=== PATIENT | female | born 1965 | race Caucasian/White ===

== ENCOUNTER 2017-03-02 14:15 | Emergency (ER) | payer MEDICAID ==
[2017-03-02] MEDS ORDERED: Lactated Ringers 1,000 ML IV ONE (15:36)
[2017-03-02] MEDS ORDERED: Sodium Chloride 0.9% 10 ML Syringe FLUSH PRN (15:36)
[2017-03-02] MEDS ORDERED: Albuterol/Ipratropium 3.0-0.5 MG/3 ML Neb Soln NEB ONE (15:38)
[2017-03-02] MEDS ORDERED: LORazepam 2 MG/ML MDV IVPUSH ONE (15:39)
--- NOTE | 2017-03-02 15:51 | EDM.PDOC ---
ED HPI GENERAL MEDICAL PROBLEM - General Chief Complaint: Respiratory Problem Stated Complaint: SOB/PASSED OUT Time Seen by Provider: 03/02/17 15:33 Source of Information: Reports: Patient, Family, RN Notes Reviewed History Limitations: Reports: No Limitations - History of Present Illness INITIAL COMMENTS - FREE TEXT/NARRATIVE: 51-year-old female presents to the emergency department today with increasing shortness of breath, she states over the last week or so she felt she had kind of a viral infection and was actually getting better and in his morning woke up with a rattling chest sputum production has had low-grade fevers highest 99, her shortness of breath progressively got worse throughout the day no nausea vomiting no chest pain no other GI symptomatology Anterior Chest Pain Score (Numeric/FACES): 7 - Related Data Allergies Allergy/AdvReac Type Severity Reaction Status Date / Time rizatriptan Allergy Bradycardia Verified 03/02/17 14:40 Sulfa (Sulfonamide Allergy Swollen Verified 03/02/17 14:36 Antibiotics) Tongue Home Meds: Home Meds Naproxen Sodium 550 mg PO DAILY PRN 05/18/16 [History] Past Medical History HEENT History: Reports: Impaired Vision EVP GENERAL COUNSEL History: Reports: Musculoskeletal History: Reports: Neck Pain, Chronic Neurological History: Reports: Cerebral Aneurysms, Migraines Psychiatric History: Reports: Anxiety, Depression, Panic Attack, PTSD Oncologic (Cancer) History: Reports: Cervix - Infectious Disease History Infectious Disease History: Reports: Chicken Pox - Past Surgical History Female Surgical History: Reports: Ureteral Stent, Other (See Below) Other Female Surgeries/Procedures: endometriosis cervix CA Lazer surgery Neurological Surgical History: Reports: C-Spine Musculoskeletal Surgical History: Reports: Other (See Below) Other Musculoskeletal Surgeries/Procedures:: neck surgery 3 plates and screws Social & Family History - Tobacco Use Smoking Status *Q: Current Every Day Smoker Years of Tobacco use: 15 Packs/Tins Daily: 0.2 Used Tobacco, but Quit: No Second Hand Smoke Exposure: Yes - Caffeine Use Caffeine Use: Reports: Coffee, Soda, Tea - Recreational Drug Use Recreational Drug Use: No ED ROS GENERAL - Review of Systems Review Of Systems: See Below Constitutional: Reports: Fever, Malaise HEENT: Reports: No Symptoms Respiratory: Reports: Shortness of Breath, Wheezing, Cough, Sputum Cardiovascular: Reports: No Symptoms GI/Abdominal: Reports: No Symptoms : Reports: No Symptoms Musculoskeletal: Reports: No Symptoms Skin: Reports: No Symptoms Neurological: Reports: No Symptoms ED EXAM, GENERAL - Physical Exam Exam: See Below Free Text/Narrative:: General: Female, in moderate respiratory distress, tripoding, alert and oriented x3 HEENT: head is atraumatic normocephalic, eyes pupils equal round reactive to light, sclera clear no conjunctivitis appreciated. Ears tympanic membranes clear and mukherjee landmarks and light reflex are present bilaterally canals are clear. Nose no septal deviation, nares are clear, no blood present. Mouth mucosa is moist and pink no erythema or exudate noted in soft palate, tongue is midline uvula is midline, dentition is intact. Neck: Supple no thyromegaly no tracheal deviation. Nodes: Cervical nodes subclavicular nodes nontender no palpable lymphadenopathy noted. Lungs: Coarse breath sounds rhonchi and wheezing throughout all lung river bilaterally upper airway noise as well CV: Regular rate and rhythm S1 and S2 appreciated no murmurs rubs or gallops noted. Abdomen: Soft, nontender, no palpable masses or organomegaly appreciated, no distention no guarding bowel sounds are present, . Neuro: Cranial nerves II through XII grossly intact Skin: Warm and dry, intact Extremities: No lower extremity edema appreciated, Course - Vital Signs Last Recorded V/S: Last Vital Signs Temp 97.7 F 03/02/17 17:18 Pulse 64 03/02/17 17:18 Resp 16 03/02/17 17:18 BP 148/86 H 03/02/17 17:18 Pulse Ox 98 03/02/17 17:18 - Orders/Labs/Meds Orders: Active Orders 24 hr Category Date Time Status Peripheral IV Care [RC] . DIRECTED Care 03/02/17 15:36 Active RT Aerosol Therapy [RC] ASDIRECTED Care 03/02/17 15:38 Active Chest 2V [CR] Urgent Exams 03/02/17 15:36 Taken CULTURE RESPIRATORY + SMEAR [RM] Urgent Lab 03/02/17 16:41 Results Sodium Chloride 0.9% [Saline Flush] Med 03/02/17 15:36 Active 10 ml FLUSH ASDIRECTED PRN Peripheral IV Insertion Adult [OM.PC] Urgent Oth 03/02/17 15:36 Ordered Medication Orders Sodium Chloride (Saline Flush) 10 ml FLUSH ASDIRECTED PRN PRN Reason: Keep Vein Open Labs: Laboratory Tests 03/02/17 03/02/17 03/02/17 Range/Units 15:53 15:53 15:53 WBC 7.2 (4.5-11.0) K/uL RBC 4.70 (3.30-5.50) M/uL Hgb 14.4 (12.0-15.0) g/dL Hct 40.9 (36.0-48.0) % MCV 87 (80-98) fL MCH 31 (27-31) pg MCHC 35 (32-36) % Plt Count 274 (150-400) K/uL Neut % (Auto) 53 (36-66) % Lymph % (Auto) 35 (24-44) % Garfield % (Auto) 10 H (2-6) % Eos % (Auto) 1 L (2-4) % Baso % (Auto) 1 (0-1) % Sodium 141 (140-148) mmol/L Potassium 4.0 (3.6-5.2) mmol/L Chloride 106 (100-108) mmol/L Carbon Dioxide 23 (21-32) mmol/L Anion Gap 11.6 (5.0-14.0) mmol/L BUN 14 (7-18) mg/dL Creatinine 0.9 (0.6-1.0) mg/dL Est Cr Clr Drug Dosing 76.28 mL/min Estimated GFR (MDRD) > 60 (>60) Glucose 93 (74-106) mg/dL Lactic Acid 2.1 H (0.4-2.0) mmol/L Calcium 9.3 (8.5-10.1) mg/dL Total Bilirubin 0.4 (0.2-1.0) mg/dL AST 16 (15-37) U/L ALT 20 (12-78) U/L Alkaline Phosphatase 81 (46-116) U/L Total Protein 8.3 H (6.4-8.2) g/dL Albumin 4.1 (3.4-5.0) g/dL Globulin 4.2 H (2.3-3.5) g/dL Albumin/Globulin Ratio 1.0 L (1.2-2.2) Meds: Medications Generic Name Dose Route Start Last Admin Trade Name Freq PRN Reason Stop Dose Admin Sodium Chloride 10 ml 03/02/17 15:36 Saline Flush FLUSH ASDIRECTED PRN Keep Vein Open Discontinued Medications Generic Name Dose Route Start Last Admin Trade Name Tori PRN Reason Stop Dose Admin Albuterol/Ipratropium 3 ml 03/02/17 15:38 03/02/17 16:09 Duoneb 3.0-0.5 Mg/3 Ml NEB 03/02/17 15:39 3 ml ONETIME ONE Administration Guaifenesin 600 mg 03/02/17 16:39 03/02/17 17:14 Mucinex PO 03/02/17 16:40 600 mg ONETIME ONE Administration Lactated Ringer's 1,000 mls @ 999 mls/hr 03/02/17 15:36 03/02/17 16:14 Ringers, Lactated IV 03/02/17 16:36 999 mls/hr ASDIRECTED ONE Administration Ceftriaxone Sodium 1 gm/ 50 mls @ 100 mls/hr 03/02/17 16:39 03/02/17 17:09 Sodium Chloride IV 03/02/17 17:08 100 mls/hr ONETIME ONE Administration Lorazepam 1 mg 03/02/17 15:39 03/02/17 16:07 Ativan IVPUSH 03/02/17 15:40 1 mg ONETIME ONE Administration Departure - Departure Time of Disposition: 18:12 Disposition: Home, Self-Care 01 Condition: Good Clinical Impression: CAP (community acquired pneumonia) Qualifiers: Laterality: unspecified laterality Qualified Code(s): J18.9 - Pneumonia, unspecified organism - Discharge Information Referrals: Juan Gonzalez PA-C [Primary Care Provider] - Forms: ED Department Discharge Additional Instructions: Take full course of antibiotics, use Mucinex as needed for sputum production, Please followup with your primary care provider in 3-5 days if not better, please call return to the emergency department with worsening of symptoms. - My Orders Last 24 Hours: My Active Orders 03/02/17 15:36 Peripheral IV Care [RC] . DIRECTED Chest 2V [CR] Urgent Sodium Chloride 0.9% [Saline Flush] 10 ml FLUSH ASDIRECTED PRN Peripheral IV Insertion Adult [OM.PC] Urgent 03/02/17 15:38 RT Aerosol Therapy [RC] ASDIRECTED 03/02/17 16:41 CULTURE RESPIRATORY + SMEAR [RM] Urgent - Assessment/Plan Last 24 Hours: My Active Orders 03/02/17 15:36 Peripheral IV Care [RC] . DIRECTED Chest 2V [CR] Urgent Sodium Chloride 0.9% [Saline Flush] 10 ml FLUSH ASDIRECTED PRN Peripheral IV Insertion Adult [OM.PC] Urgent 03/02/17 15:38 RT Aerosol Therapy [RC] ASDIRECTED 03/02/17 16:41 CULTURE RESPIRATORY + SMEAR [RM] Urgent Plan: Assessment Acuity = acute Site and laterality = community-acquired pneumonia Etiology = probable gram-positive cocci Manifestations = dyspnea, cough Location of injury = Home Lab values = CBC, CMP unremarkable lactic acid within normal limits at 2.1 chest x-ray I did review films myself I cannot appreciate any acute process, the official read from radiology is pending, sputum does show multiple gram- positive cocci with greater than 25 WBCs cultures pending Plan She did receive 1 g of Rocephin in the emergency department, prescription written for Ceftin 500 mg by mouth twice a day 7 days have her follow-up with her primary care in the next 5-7 days for reevaluation if not better Patient was in agreement with the plan all questions were answered, they were instructed to return to the emergency department or call for worsening symptoms. This note was dictated using Blogv[employer] voice recognition software please call with any questions.
[2017-03-02] MEDS ORDERED: cefTRIAXone 1 GM in Sodium Chloride 0.9% 50 ML IV ONE (16:39)
[2017-03-02] MEDS ORDERED: guaiFENesin 600 MG Tab.ER PO ONE (16:39)
[2017-03-02 17:19] VITALS: BP 148/86
--- NOTE | 2017-03-03 08:57 | CR ---
Chest 2V HISTORY: sob COMPARISON: None FINDINGS: Lungs appear clear and normally aerated. Cardiomediastinal silhouette is within normal limits. No vas cular redistribution or pleural fluid can be seen. There is anterior plate and screw fusion lower cer vical spine. Bony structures and soft tissues are otherwise unremarkable. IMPRESSION: No acute chest abnormality identified.
== END 2017-03-02 18:27 | disposition home or self-care (01) ==
LOC: JP.ED 14:15
DX: J18.9 Pneumonia, unspecified organism (principal); F17.210 Nicotine dependence, cigarettes, uncomplicated; Z88.2 Allergy status to sulfonamides; Z88.8 Allergy status to other drugs, medicaments and biological substances; Z96.0 Presence of urogenital implants; Z98.890 Other specified postprocedural states
CPT/HCPCS: 36415; 71020; 80053; 83605; 85025; 87070; 87205; 94640; 96361; 96365; 96375; 99285; A9270; J0696; J2060; J7050; J7120; J7620

== ENCOUNTER 2017-05-16 06:57 | Day surgery (SDC) | payer MEDICAID ==
[2017-05-16] MEDS ORDERED: Propofol 200 MG/20 ML SDV ONE (07:04)
[2017-05-16] MEDS ORDERED: Midazolam 1 MG/ML 2 ML SDV ONE (07:05)
[2017-05-16] MEDS ORDERED: fentaNYL 100 MCG/2 ML SDV ONE (07:05)
[2017-05-16] MEDS ORDERED: Dextrose 5%-Lactated Ringers 1,000 ML IV SCH (07:30)
[2017-05-16] MEDS ORDERED: Glycopyrrolate 0.2 MG/ML 2 ML SDV IVPUSH ONE (07:30)
[2017-05-16 10:18] VITALS: BP 141/71
--- NOTE | 2017-05-23 16:47 | OR ---
DATE OF PROCEDURE: 05/16/2017 PREOPERATIVE DIAGNOSIS: Upper abdominal pain. POSTOPERATIVE DIAGNOSES: Upper abdominal pain associated with: 1. Small hiatal hernia with wide-open gastroesophageal junction and also grossly gastroesophageal reflux disease. 2. Mild antral gastritis. OPERATIVE PROCEDURES: Esophagogastroduodenoscopy with; 1. Biopsies of esophagogastric junction for histologic evaluation. 2. Biopsies of antrum for CLOtest. ANESTHESIA: IV sedation. INDICATION FOR PROCEDURE: This is a 51-year-old female presenting with episodes of epigastric pain going into the lower chest and also radiating to the back. She had been on omeprazole 20 mg a day and 5 days ago went up to 40 mg a day, but has not noticed much in the change of her symptoms. The plan is proceed with upper GI endoscopy with biopsies and dilation as indicated. Potential risks including bleeding and perforation were discussed and the patient wishes to proceed. DETAILS OF PROCEDURE: The patient was taken to the operating room and placed in a left lateral decubitus position. IV sedation was administered, after which the upper GI endoscope was passed orally through the length of the esophagus and into the stomach with retroflexion view of the fundus, thereafter through the pyloric channel and into the proximal duodenum. Findings included normal hypopharynx, larynx, upper esophageal sphincter, and esophageal body. At the EG junction, there was a small hiatal hernia, there was quite wide open gastroesophageal junction as visualized from the distal esophagus with some mild edema of the EG junction without erosions or ulceration and no stricturing or other signs of neoplasia were seen. There was no obvious extension of the columnar-appearing mucosa above the level of the gastric folds. Within the stomach, apart from a small hiatal hernia, wide open esophagogastric junction, the proximal stomach was unremarkable. There was a fairly mild antral gastritis present without erosions or ulcers. Pyloric channel and duodenum to the junction of the 3rd and 4th portions was unremarkable. At this point, biopsies obtained from the antrum and sent for CLOtest for H. pylori. Multiple biopsies were obtained from esophagogastric junction, sent for histologic evaluation. No bleeding from the biopsy sites were seen and the procedure was then concluded. The patient was taken to the recovery room in satisfactory condition. At this point, we will have the patient to continue the omeprazole 40 mg a day. The findings are not entirely convincing as far as causing the patient's present symptoms as such. Given this, we will obtain a CCK-stimulated HIDA scan to rule out biliary dyskinesia, and we will see the patient back next week to try to put things together in terms of diagnosis and plan. One additional finding was that of deeply pigmented and irregular mole from her left arm. This will be excised at the time of the followup appointment next week as well to either rule out or eliminate melanoma. Gianni Reich MD /[id number]
--- NOTE | 2017-05-28 12:07 | OR ---
DATE OF PROCEDURE: 05/16/2017 PREOPERATIVE DIAGNOSIS: Upper abdominal pain. POSTOPERATIVE DIAGNOSES: Upper abdominal pain associated with: 1. Small hiatal hernia with wide-open esophagogastric junction and mild gross gastroesophageal reflux disease. 2. Mild antral gastritis. OPERATIVE PROCEDURE: Esophagogastroduodenoscopy with: 1. Biopsies of esophagogastric junction for histologic evaluation. 2. Biopsies of antrum for CLOtest. ANESTHESIA: IV sedation. INDICATIONS FOR PROCEDURE: This is a 51-year-old presenting with ongoing upper abdominal pain. Plan is to proceed with upper GI endoscopy with biopsies as indicated. Potential risks including bleeding and perforation were discussed, and the patient wishes to proceed. DETAILS OF PROCEDURE: The patient was taken to the operating room and placed in a left lateral decubitus position. IV sedation was administered, after which the upper GI endoscope was passed orally through the length of the esophagus and into the stomach with retroflexion view of the fundus, and thereafter through the pyloric channel and into the proximal duodenum. Findings included normal hypopharynx, larynx, upper esophageal sphincter, and esophageal body. At the EG junction, a small hiatal hernia was noted. The patient did have a quite wide-open esophagogastric junction as viewed from the distal esophagus along with some mild edema and slight friability of the distal esophageal mucosa consistent with reflux disease. There was no upward extension of the gastroesophageal junction mucosal line. Within the stomach apart from the hiatal hernia, there were no abnormalities in the proximal stomach. As one passed into the distal stomach, there was some mild redness of the antrum without erosions or ulcers. Pyloric channel and duodenum to the junction of the 3rd and 4th portions were unremarkable. At this point, biopsies were obtained from the antrum and sent for CLOtest for H. pylori. Multiple biopsies were obtained from esophagogastric junction, sent for histologic evaluation. Minimal bleeding from the biopsy sites were seen and the procedure was then concluded. The patient was taken to the recovery room in satisfactory condition. Overall, the patient's findings on the upper endoscopy do not adequately explain her degree of symptoms, I suspect we might be dealing with some biliary colic, and we will obtain a CCK- stimulated HIDA scan and see her back next week if that test has been completed. Gianni Reich MD /[id number]
== END 2017-05-16 10:30 | disposition home or self-care (01) ==
LOC: JP.SDS 06:57
PROVIDERS: ATTEND Surgery
DX: K29.50 Unspecified chronic gastritis without bleeding (principal); K20.9 Esophagitis, unspecified; K44.9 Diaphragmatic hernia without obstruction or gangrene; K21.9 Gastro-esophageal reflux disease without esophagitis; F41.9 Anxiety disorder, unspecified; F32.9 Major depressive disorder, single episode, unspecified; Z88.2 Allergy status to sulfonamides; Z88.8 Allergy status to other drugs, medicaments and biological substances
CPT/HCPCS: 43239; 87081; 88305; J2250; J2704; J3010; J7042; J3490

== ENCOUNTER 2017-05-26 05:37 | Day surgery (SDC) | payer MEDICAID ==
[2017-05-26] MEDS ORDERED: Acetaminophen 500 MG Tab PO ONE (05:45)
[2017-05-26] MEDS: Dextrose 5%-Lactated Ringers 1,000 ML IV SCH ×2 (06:44→11:23)
[2017-05-26] MEDS ORDERED: Bupivacaine 0.5%/EPINEPHrine 1:200,000 50 ML MDV ONE (06:51)
[2017-05-26] MEDS ORDERED: cefOXitin 2 GM in Sodium Chloride 0.9% 50 ML IV ONE (07:00)
[2017-05-26] MEDS ORDERED: Albuterol/Ipratropium 3.0-0.5 MG/3 ML Neb Soln NEB ONE (07:00)
[2017-05-26] MEDS ORDERED: cefOXitin 2 GM in Premix Bag 1 BAG IV ONE (07:00)
[2017-05-26] MEDS ORDERED: fentaNYL 250 MCG/5 ML SDV ONE (07:02)
[2017-05-26] MEDS ORDERED: Neostigmine Methylsulfate 1 MG/ML 5 ML Syringe ONE (07:03)
[2017-05-26] MEDS ORDERED: Rocuronium 50 MG/5 ML Vial ONE (07:03)
[2017-05-26] MEDS ORDERED: Glycopyrrolate 0.2 MG/ML 5 ML MDV ONE (07:03)
[2017-05-26] MEDS ORDERED: Midazolam 1 MG/ML 2 ML SDV ONE (07:03)
[2017-05-26] MEDS ORDERED: Dexamethasone 4 MG/ML SDV ONE (07:03)
[2017-05-26] MEDS ORDERED: Propofol 200 MG/20 ML SDV ONE (07:03)
[2017-05-26] MEDS ORDERED: Ondansetron 4 MG/2 ML SDV ONE (07:03)
[2017-05-26] MEDS ORDERED: HYDROmorphone/Normal Saline 15 MG/30 ML PCA IV PRN (07:35)
[2017-05-26] MEDS ORDERED: Naloxone 0.4 MG/ML SDV IVPUSH PRN (07:35)
[2017-05-26] MEDS ORDERED: Bacitracin Oint 1 GM U/D Packet ONE (07:39)
[2017-05-26] MEDS ORDERED: hydrOXYzine HCl 100 MG/2 ML SDV IM ONE (08:42)
[2017-05-26] MEDS ORDERED: Naloxone 0.4 MG/ML SDV IV PRN (09:55)
[2017-05-26] MEDS ORDERED: Ondansetron 4 MG/2 ML SDV IVPUSH PRN (10:00)
[2017-05-26] MEDS ORDERED: Albuterol/Ipratropium 3.0-0.5 MG/3 ML Neb Soln INH PRN (10:00)
[2017-05-26] MEDS ORDERED: Pantoprazole 40 MG Vial IVPUSH SCH (11:00)
[2017-05-26] MEDS: Albuterol/Ipratropium 3.0-0.5 MG/3 ML Neb Soln INH SCH ×3 (12:58→21:09)
[2017-05-26] MEDS ORDERED: cefOXitin 2 GM in Sodium Chloride 0.9% 50 ML IV SCH (14:00)
[2017-05-26] MEDS: Acetaminophen/HYDROcodone 325-5 MG Tab PO PRN ×2 (19:20→23:12)
[2017-05-27] MEDS: Acetaminophen/HYDROcodone 325-5 MG Tab PO PRN ×3 (03:22→11:16)
[2017-05-27 07:16] VITALS: BP 126/64
[2017-05-27] MEDS: Albuterol/Ipratropium 3.0-0.5 MG/3 ML Neb Soln INH SCH ×2 (07:49→10:49)
--- NOTE | 2017-05-28 13:37 | DISCH ---
FINAL DIAGNOSES: 1. Subacute cholecystitis and cholelithiasis. 2. Incisional hernia. 3. Atypical skin lesion, left upper arm. SECONDARY DIAGNOSES: 1. History of migraine. 2. Depressive disorder and posttraumatic stress disorder. 3. History of asthma. 4. History of nicotine addiction. OPERATIVE PROCEDURES: Done on 05/26/2017: 1. Laparoscopic cholecystectomy along with incisional hernia repair. 2. Excision of atypical nevus, left upper arm. SUMMARY: This is a 51-year-old presenting with some ongoing abdominal pain. She recently had an upper endoscopy which showed some minor gastritis and gastroesophageal reflux disease, but it was felt to be inadequate to explain her degree of symptoms. A CCK- stimulated HIDA scan was obtained which showed a very low ejection fraction with CCK injection causing reproduction of the patient's pain as well, and the patient therefore underwent a laparoscopic cholecystectomy. She was noted to have an incisional hernia at the umbilical trocar site previously used and that was concurrently repaired. She was also noted to have an atypical darkly pigmented lesion with irregular borders in the left upper arm which was excised to determine whether or not there was a melanoma to prevent it from becoming one. Postoperatively, she had no significant problems. She will be discharged home on usual medications plus Redford 5/325, 1 to 2 tablets q.4 hours p.r.n. pain. She does take midodrine intermittently for migraines and she is instructed not to take both the midodrine and Redford at the same time to avoid overdosing on atenolol. Follow up with Dr. Reich at [facility] on 06/02/2017.
--- NOTE | 2017-05-29 08:43 | US ---
VL Duplex Lwr Ext Veins Ltd Rt HISTORY: right calf and foot pain FINDINGS: Deep venous system of the right lower extremity demonstrates normal blood flow and compressibility th roughout. Normal Doppler waveform variation is seen with respiration and calf compression. No color f low abnormality can be seen. IMPRESSION: No sonographic evidence for DVT right lower extremity.
--- NOTE | 2017-05-29 13:24 | OR ---
DATE OF PROCEDURE: 05/26/2017 PREOPERATIVE DIAGNOSES: 1. Subacute cholecystitis. 2. Atypical nevus, left upper arm. POSTOPERATIVE DIAGNOSES: 1. Subacute cholecystitis and cholelithiasis. 2. Incisional hernia. 3. Atypical nevus, left upper arm. OPERATIVE PROCEDURE: Diagnostic laparoscopy with: 1. Cholecystectomy (74533). 2. Incisional hernia repair (48092). 3. Excision of atypical nevus, left upper arm with layered closure ([id number], [id number]). ANESTHESIA: General. TORCH SOLDERER: Christianne Verma PA-C. INDICATION FOR PROCEDURE: This is a 51-year-old presenting with ongoing upper abdominal pain. HIDA scan done earlier this week showed nonfilling of the gallbladder and the patient is to undergo a cholecystectomy at this time. Potential risks of the procedure including bleeding, infection, injury to underlying viscera, possible persistent symptoms postoperatively were reviewed, and the patient wishes to proceed. She also has an atypical- appearing skin lesion which is quite darkened with irregular borders in the left upper arm to be excised concurrently. Potential risks of this procedure including bleeding, infection, and possible need for additional excision if melanoma is identified were gone over and the patient wishes to proceed. DETAILS OF PROCEDURE: The patient was taken to the operating room and placed in a supine position. After general endotracheal anesthesia was induced and initially the left upper arm was then prepped and draped. An elliptical incision maintaining a margin of normal- appearing skin around it was then made and the depth of incision going well into the fat layer, so that adequate staging could be obtained should this be a melanoma. The length of the lesion was 0.6 cm and the length of the incision was 2.2 cm. The deeper soft tissues were approximated with some 5-0 Vicryl stitch and the skin with 5-0 Prolene stitch. Dressing was then applied. The abdomen was then prepped and draped and the initial incision in the epigastrium was made and peritoneal cavity entered under direct vision with an Optiview trocar, inflated to 15 mmHg pressure with CO2. The laparoscope was then reinserted. No underlying trocar insertion site injuries were seen. On peering down toward the umbilicus, the patient was noted to have a hernia located in that area. The patient had a previous laparoscopic incision and this appeared to be a hernia at that incision site. A transverse incision at the previous incision line was then made and a 10-mm trocar was placed through the hernia. The defect was around 1 cm, so the port easily passed through the area of the herniation and a single 5-mm right upper quadrant port was then also placed. The gallbladder as expected was quite distended and edematous, consistent with nonfilling of the gallbladder on a recent HIDA scan and the overall picture would be that of a subacute cholecystitis. The dissection began on the gallbladder neck with Harmonic scalpel and then continued around the gallbladder neck and cystic duct junction. Once that area was well delineated as was the adjacent cystic artery, both structures were clipped 3 times proximally and once distally and then divided, and the gallbladder was dissected off the gallbladder bed and delivered through the epigastric port. The latter needed to be enlarged somewhat to allow evacuation of the gallbladder. The patient had 1 roughly grape-sized stone. The bile was clear indicating chronic obstruction of the cystic duct. The area of the dissection was inspected. No bleeding or bile leaks were seen. A Dashawn- Perera drain was taken out through the right lateral trocar site and placed into the area of the gallbladder bed and at that point, the camera port was brought back up into the epigastric site for repair of the incisional hernia. The trocar at the incisional hernia site was then removed and using the laparoscopic suture passers, 0 Vicryl sutures were placed with a transverse orientation in terms of the closure. Once these were all in place, the epigastric trocar site was closed at the fascia level with 0 Vicryl stitch as well and upon removal of trocars, the peritoneal cavity was deflated, and the incisional hernia site sutures were tied. The incision was then closed with 4-0 Vicryl skin stitch. Dressing was applied. The patient was taken to the recovery room in satisfactory condition. There were no evident complications. Gianni Reich MD /[id number]
== END 2017-05-27 11:33 | disposition home or self-care (01) ==
LOC: JP.SDS 05:37 → JP.2SS 08:35 → JP.SDS 05-27 11:33
PROVIDERS: ATTEND Surgery
DX: K80.12 Calculus of gallbladder with acute and chronic cholecystitis without obstruction (principal); K43.2 Incisional hernia without obstruction or gangrene; C43.62 Malignant melanoma of left upper limb, including shoulder; F32.9 Major depressive disorder, single episode, unspecified; G43.909 Migraine, unspecified, not intractable, without status migrainosus; J45.909 Unspecified asthma, uncomplicated; F17.200 Nicotine dependence, unspecified, uncomplicated; K21.9 Gastro-esophageal reflux disease without esophagitis; F41.9 Anxiety disorder, unspecified; Z88.2 Allergy status to sulfonamides; Z88.8 Allergy status to other drugs, medicaments and biological substances
CPT/HCPCS: 11603; 36415; 47562; 49654; 80053; 82247; 84075; 85027; 93971; 94640; A9270; C9113; J0694; J1100; J1170; J2250; J2405; J2704; J2710; J3010; J3410; J7042; J7050; J7620; 88304; 88305; 88342

== ENCOUNTER 2017-06-19 06:34 | Day surgery (SDC) | payer MEDICAID ==
[2017-06-19] MEDS ORDERED: ceFAZolin 2 GM in Premix Bag 1 BAG IV ONE (07:00)
[2017-06-19] MEDS ORDERED: Dextrose 5%-Lactated Ringers 1,000 ML IV SCH (07:00)
[2017-06-19] MEDS ORDERED: Acetaminophen 500 MG Tab PO ONE (07:00)
[2017-06-19] MEDS ORDERED: Isosulfan Blue 5 ML SDV ONE (08:43)
[2017-06-19] MEDS ORDERED: Lidocaine 1% with EPINEPHrine 1:100,000 50 ML MDV ONE (08:43)
[2017-06-19] MEDS ORDERED: Bupivacaine 0.5% 50 ML MDV ONE (08:43)
[2017-06-19] MEDS ORDERED: fentaNYL 100 MCG/2 ML SDV ONE (09:25)
[2017-06-19] MEDS ORDERED: Propofol 200 MG/20 ML SDV ONE ×2 (09:25→10:03)
[2017-06-19] MEDS ORDERED: Midazolam 1 MG/ML 2 ML SDV ONE (09:25)
[2017-06-19] MEDS ORDERED: Glycopyrrolate 0.2 MG/ML 5 ML MDV ONE (10:03)
[2017-06-19] MEDS ORDERED: Ondansetron 4 MG/2 ML SDV ONE (10:03)
[2017-06-19] MEDS ORDERED: fentaNYL 250 MCG/5 ML SDV ONE (10:03)
[2017-06-19] MEDS ORDERED: Neostigmine Methylsulfate 1 MG/ML 5 ML Syringe ONE (10:03)
[2017-06-19] MEDS ORDERED: Rocuronium 50 MG/5 ML Vial ONE (10:03)
[2017-06-19] MEDS ORDERED: Dexamethasone 4 MG/ML SDV ONE (10:03)
[2017-06-19] MEDS ORDERED: Lactated Ringers 1,000 ML ONE (11:24)
--- NOTE | 2017-06-19 12:04 | NM ---
Lymphoscintigraphy HISTORY: Melanoma COMPARISON: None. Technique: 1.51 mCi of technetium 99 sulfur colloid was administered in the left upper arm. Findings: Sequential imaging was performed and demonstrates focal radiotracer uptake within the left axilla.
[2017-06-19] MEDS ORDERED: hydrOXYzine HCl 100 MG/2 ML SDV IM ONE (12:07)
[2017-06-19] MEDS ORDERED: Meperidine PF 100 MG/ML Syringe IM PRN (12:07)
[2017-06-19] MEDS ORDERED: fentaNYL 100 MCG/2 ML SDV IVPUSH ONE (12:50)
[2017-06-19] MEDS ORDERED: Acetaminophen/oxyCODONE 325-5 MG Tab PO PRN (13:30)
[2017-06-19] MEDS ORDERED: Lidocaine 1% 2 ML ONE (14:37)
[2017-06-19 15:49] VITALS: BP 119/65
--- NOTE | 2017-06-22 14:23 | OR ---
DATE OF PROCEDURE: 06/19/2017 PREOPERATIVE DIAGNOSIS: Injection of radioactive tracer for lymphoscintigraphy in left arm (04403). INDICATIONS FOR PROCEDURE: The patient is undergoing a sentinel lymph node biopsy at this time for re-excision of the melanoma today, to help identify the location of the sentinel nodes, the patient will undergo a lymphoscintigraphy. DESCRIPTION OF PROCEDURE: In the Nuclear Medicine Department, 1 mL of radioactive technetium colloid was injected around the biopsy site. This was done without incident and the patient will undergo a lymphoscintigraphy presently. Gianni Reich MD /[id number]
--- NOTE | 2017-06-22 14:47 | OR ---
DATE OF PROCEDURE: 06/19/2017 PREOPERATIVE DIAGNOSES: 1. Status post excision of invasive melanoma, left upper arm. 2. Excision of pre melanocytic skin lesions involving abdomen and back. POSTOPERATIVE DIAGNOSES: 1. Status post excision of invasive melanoma, left upper arm. 2. Excision of pre melanocytic skin lesions involving abdomen and back. 3. PROCEDURES: 1. Wide re-excision of melanoma, left arm (29326, 79275). 2. Injection procedure for identification of sentinel lymph node (96087). 3. Left axillary lymph node biopsy (01624). 4. Re-excision of melanocytic skin lesion abdominal wall (24980, 58084). 5. Re-excision of melanocytic lesion back (18489, 48183). ANESTHESIA: General. SUBSTANCE ABUSE COUNSELOR: KRIA Rubin. INDICATION FOR PROCEDURE: This is a 51-year-old presenting with recently identified invasive melanoma. The depth of melanoma was 0.78 cm, but given the high mitotic rate of the sentinel lymph node biopsy, it was felt to be warranted in addition to the wide re- excision. The patient also had 3 skin lesions taken off per Dr. Aparicio last week, two of these were noted to have melanotic type features, and have not been considered melanomas as of yet, but had very minimal if any margins. The recommendation would be to re-excise these with a small of normal-appearing margin. The plan is to proceed with the above findings. The patient underwent an injection procedure for lymphoscintigraphy in the left upper arm area, which showed a central focus of lymph nodes and the axillary lymph node chain and that will be the site of the lymph node biopsy. Potential risks of procedure including bleeding, infection, and injury to the nerves, or vasculature at time of the axillary lymph node biopsy, possible recurrence of the tumor overtime, the possibility of needing a full axillary dissection should there be metastatic tumor identified on final examination on the lymph nodes were all gone over, and the patient wishes to proceed. DETAILS OF PROCEDURE: The patient was taken to the operating room and after general endotracheal anesthesia was induced, was initially placed in a left lateral decubitus position. This allowed the prepping and draping of the lesions on the abdomen and back. These were both in turn excised with transversely oriented elliptical incisions maintaining 2 to 3 mm margin of normal-appearing skin around it and extending into the subcutaneous tissue. In each case, these were closed with 5-0 Vicryl stitch deep and a 5-0 Prolene stitch. The lesion in the mid lower back, it was the 8 mm and incision length 3.6 cm and the lesion of the lower abdomen was 1 cm with incision length of 3.7 cm. At this point, the patient was placed in supine position. The Isosulfan blue dye was then injected around the site of the melanoma excision in the left upper arm, and the left arm, axilla, and surrounding areas were then prepped and draped. Initially, a transversely-oriented incision making a minimum of 1 cm margin away from the incision length was made on the left arm. This ultimately led to an incision length of 8.5 cm and the incision, which would be considered the tumor size itself at this point was 3.5 cm. Then, this incision was carried directly down onto the skin and subcutaneous tissue and fascia, and the muscular fascia was then incised en bloc with the lesion. Deep and soft tissues were then approximated with some 3-0 and 4-0 Vicryl stitch deep and the jabier for the skin. The deep and soft tissues could not be approximated at the fascia level and we would expect the patient may have a tendency to develop a seroma in this incision. Because of the blue dye staining area, we opted not to place a drain at this point. That area was then covered and attention was taken to the axillary lymph node dissection. Using the radiation detection device, the optimal point of incision in the central left axilla was identified and that area was then incised in line with the skin creases. This was carried down through the skin and subcutaneous tissue and through the deep axillary fascia. At that point, the lymph nodes containing the blue dye were identified and these were excised. The patient did have some bleeding in that area requiring some sutures of some venous branches with a 3-0 Vicryl stitch. The lymph node or group of lymph nodes was then delivered from the field and incisions were then closed with some 3-0 and 4-0 Vicryl stitch deep and then jabier for the skin. The upper arm lesion like arvizu was then closed with jabier at the skin. Dressings were applied. At this point, the patient was taken to the recovery room in satisfactory condition. There were no evident complications. Gianni Reich MD /[id number]
== END 2017-06-19 15:40 | disposition home or self-care (01) ==
LOC: JP.SDS 06:34
PROVIDERS: ATTEND Surgery
DX: C43.62 Malignant melanoma of left upper limb, including shoulder (principal); L98.8 Other specified disorders of the skin and subcutaneous tissue; F32.9 Major depressive disorder, single episode, unspecified; Z88.2 Allergy status to sulfonamides; Z88.8 Allergy status to other drugs, medicaments and biological substances; Z79.899 Other long term (current) drug therapy; F17.210 Nicotine dependence, cigarettes, uncomplicated
CPT/HCPCS: 11402; 11604; 12035; 36415; 38525; 38900; 78195; 80053; 85027; 88305; 88307; 88341; 88342; A9270; A9541; J0690; J1100; J2175; J2405; J2704; J3010; J3410; J7042; J7120; Q9968; J2250; J2710

== ENCOUNTER → 2017-10-03 | Day surgery (SDC) | payer MEDICAID ==
[~2017-10-03] MED LIST: Acetaminophen/oxyCODONE 325-5 MG Tab PO ONE; Bacitracin Oint 1 GM U/D Packet ONE; Bupivacaine 0.5% 50 ML MDV ONE; Dextrose 5%-Lactated Ringers 1,000 ML IV SCH; Ketorolac 60 MG/2 ML SDV ONE; Lidocaine 1% with EPINEPHrine 1:100,000 50 ML MDV ONE; Midazolam 1 MG/ML 2 ML SDV ONE; Ondansetron 4 MG/2 ML SDV IVPUSH ONE; Propofol 200 MG/20 ML SDV ONE; ceFAZolin 2 GM in Premix Bag 1 BAG IV ONE; fentaNYL 100 MCG/2 ML SDV IVPUSH ONE; fentaNYL 100 MCG/2 ML SDV ONE
[2017-10-03 13:45] VITALS: BP 157/68
--- NOTE | 2017-10-12 11:30 | OR ---
DATE OF PROCEDURE: 10/03/2017 PREOPERATIVE DIAGNOSES: 1. Invasive melanoma, right upper arm. 2. Melanocytic nevus with severe atypia and close excision margins of upper back. POSTOPERATIVE DIAGNOSES: 1. Invasive melanoma, right upper arm. 2. Melanocytic nevus with severe atypia and close excision margins of upper back. OPERATIVE PROCEDURES: 1. Wide excision of invasive melanoma of right upper arm with layered closure (21585, 47673). 2. Wide excision of melanocytic nevus with severe atypia, upper back, with layered closure (95156, 94170). ANESTHESIA: Local plus IV sedation. INDICATION FOR PROCEDURE: The patient was referred by Dr. Genna Iqbal of the Dermatology Department for re-excision of 2 melanocytic lesions, one in the upper arm and one in the upper back. The one on the arm has 0.25 mm depth invasive melanoma and will be re-excised with a 1 cm margin. The melanocytic nevus with severe atypia in the upper back will be excised with similar margin in the event that there may be some element of sampling error that might contribute to missing some small areas of invasion. The potential risks of the procedure including bleeding, infection, possible recurrence of the melanomas were all reviewed, and the patient wishes to proceed. DETAILS OF PROCEDURE: The patient was taken to the operating room, and after being placed in the prone position, IV sedation was administered, and the upper back and arm areas were prepped and draped. Both areas were anesthetized with 1% lidocaine mixed with Marcaine. Beginning on the midback lesion, an ellipse maintaining 1 cm margin with a transverse orientation was made. This was carried down through the skin and subcutaneous tissue to the level of the fascia, and the disk tissue, including underlying muscular fascia, was then excised and delivered from the field. The margin plus lesion length was 3.0 cm, and the layered closure length was 4.1 cm. Attention was then paid to the arm lesion. A similar transversely oriented elliptical incision was made, maintaining 1 cm margin from all points of the previous incision. Then, this was similarly excised down to the level of the fascia and excised with the underlying fascia intact and delivered from the field. This resulted in a 4.0 cm lesion plus margin distance and 6.9 cm layered closure distance. Both areas were closed with 3-0 and 4-0 Vicryl stitch deep and then a 5-0 Prolene skin stitch. Dressing was applied. The patient was taken to the recovery room in a satisfactory condition. Gianni Reich MD /[id number]
== END ==
LOC: JP.SDS 08:08
PROVIDERS: ATTEND Surgery
DX: C43.61 Malignant melanoma of right upper limb, including shoulder (principal); D22.5 Melanocytic nevi of trunk; F17.200 Nicotine dependence, unspecified, uncomplicated
CPT/HCPCS: 11403; 11604; 12034; 81025; 88305; A9270; J0690; J1885; J2250; J2405; J2704; J3010; J7042

== ENCOUNTER 2017-10-14 16:39 | Emergency (ER) | payer MEDICAID ==
[2017-10-14 16:54] VITALS: BP 130/80
--- NOTE | 2017-10-14 17:26 | EDM.PDOC ---
ED HPI GENERAL MEDICAL PROBLEM - General Chief Complaint: Wound Recheck Stated Complaint: CONCERN ABOUT INCISION Time Seen by Provider: 10/14/17 17:29 Source of Information: Reports: Patient History Limitations: Reports: No Limitations - History of Present Illness INITIAL COMMENTS - FREE TEXT/NARRATIVE: pt had several melanoma removed 9 days ago. She had one on her back removed and the stitches were removed yesterday and the wound opened up over nite. There was some drainage from the wound. Onset: Today Duration: Hour(s): Location: Reports: Back Associated Symptoms: Reports: No Other Symptoms Left Back Pain Score (Numeric/FACES): 5 - Related Data Allergies Allergy/AdvReac Type Severity Reaction Status Date / Time rizatriptan Allergy Bradycardia Verified 10/03/17 08:41 Sulfa (Sulfonamide Allergy Swollen Verified 10/03/17 08:41 Antibiotics) Tongue Home Meds: Home Meds Albuterol Sulfate [Proair Hfa] 2 puff IH Q4H PRN 05/15/17 [History] Cyclobenzaprine [Flexeril] 10 mg PO TID PRN 05/15/17 [History] Acetaminop/Dichlphn/Isomethept [Midrin 325-100-65 MG] 2 cap PO ASDIRECTED PRN [History] traMADol [Ultram] 10/14/17 [History] Past Medical History HEENT History: Reports: Impaired Vision Respiratory History: Reports: Pneumonia, Recurrent Gastrointestinal History: Reports: None, Cholelithiasis Genitourinary History: Reports: None [employer] History: Reports: Endometriosis, Musculoskeletal History: Reports: Neck Pain, Chronic Neurological History: Reports: Cerebral Aneurysms, Migraines Psychiatric History: Reports: Anxiety, Depression, Panic Attack, PTSD Oncologic (Cancer) History: Reports: Cervix, Malignant Melanoma Dermatologic History: Reports: Melanoma - Infectious Disease History Infectious Disease History: Reports: Chicken Pox - Past Surgical History HEENT Surgical History: Reports: None Respiratory Surgical History: Reports: None GI Surgical History: Reports: EGD Female Surgical History: Reports: Ureteral Stent, Other (See Below) Other Female Surgeries/Procedures: endometriosis cervix CA Lazer surgery Neurological Surgical History: Reports: C-Spine Musculoskeletal Surgical History: Reports: Other (See Below) Other Musculoskeletal Surgeries/Procedures:: neck surgery 3 plates and screws Oncologic Surgical History: Reports: None Dermatological Surgical History: Reports: Skin Biopsy Social & Family History - Family History Family Medical History: Noncontributory - Tobacco Use Smoking Status *Q: Light Tobacco Smoker Years of Tobacco use: 20 Packs/Tins Daily: 0.5 Used Tobacco, but Quit: No Month/Year Tobacco Last Used: 01 Second Hand Smoke Exposure: Yes - Caffeine Use Caffeine Use: Reports: Coffee - Recreational Drug Use Recreational Drug Use: No ED ROS GENERAL - Review of Systems Review Of Systems: See Below Constitutional: Reports: No Symptoms HEENT: Reports: No Symptoms Respiratory: Reports: No Symptoms Cardiovascular: Reports: No Symptoms Endocrine: Reports: No Symptoms GI/Abdominal: Reports: No Symptoms : Reports: No Symptoms Musculoskeletal: Reports: No Symptoms Skin: Reports: No Symptoms ED EXAM, SKIN/RASH Exam: See Below Text/Narrative:: pt had the wound open up on hr back and tjhere was some drainage and there was some redness. Exam Limited By: No Limitations General Appearance: Alert, Anxious Extremities: Other (pt has a 2 inch wound on her back that opened up and there was some drsinage at that time. ) Neurological: Alert, Oriented Course - Vital Signs Last Recorded V/S: Last Vital Signs Temp Pulse 85 10/14/17 16:54 Resp 16 10/14/17 16:54 BP 130/80 10/14/17 16:54 Pulse Ox 98 10/14/17 16:54 - Re-Assessments/Exams Free Text/Narrative Re-Assessment/Exam: 10/14/17 17:33 the wound was cleaned well and benzoin was appled and it was steri stripped and brought together. steri strips will be sent home with her. 10/14/17 17:34 Departure - Departure Time of Disposition: 17:23 Disposition: Home, Self-Care 01 Condition: Fair Clinical Impression: Encounter for wound re-check - Discharge Information Instructions: Incision and Drainage Referrals: Leighann Aparicio MD [Primary Care Provider] - Forms: ED Department Discharge Care Plan Goals: melanoma, wound open with mild infection, wound was steri stripped, steri strips were sent home with the pt so she can reapply, appt with Dr Damir guerin, keflex 500mg tid for 1 week. .
== END 2017-10-14 17:32 | disposition home or self-care (01) ==
LOC: JP.ED 16:39
DX: Z48.817 Encounter for surgical aftercare following surgery on the skin and subcutaneous tissue (principal); Z88.2 Allergy status to sulfonamides; Z88.8 Allergy status to other drugs, medicaments and biological substances; F17.210 Nicotine dependence, cigarettes, uncomplicated
CPT/HCPCS: 99283

== ENCOUNTER 2023-08-02 07:21 | Day surgery (SDC) | payer MEDICARE, MEDICAID ==
[~2023-08-02 07:21] MED LIST changes: -Acetaminophen/oxyCODONE 325-5 MG Tab PO ONE; -Bacitracin Oint 1 GM U/D Packet ONE; -Bupivacaine 0.5% 50 ML MDV ONE; -Dextrose 5%-Lactated Ringers 1,000 ML IV SCH; -Ketorolac 60 MG/2 ML SDV ONE; -Lidocaine 1% with EPINEPHrine 1:100,000 50 ML MDV ONE; -Ondansetron 4 MG/2 ML SDV IVPUSH ONE; -ceFAZolin 2 GM in Premix Bag 1 BAG IV ONE; -fentaNYL 100 MCG/2 ML SDV IVPUSH ONE
[2023-08-02] MEDS: Lactated Ringers 1,000 ML IV SCH (07:59)
[2023-08-02] MEDS ORDERED: Propofol 200 MG/20 ML SDV ONE (10:13)
[2023-08-02 11:05] VITALS: BP 146/64; PULSE 70
== END 2023-08-02 11:51 | disposition home or self-care (01) ==
LOC: JP.SDS 07:21
PROVIDERS: ATTEND Student in an Organized Health Care Education/Training Program
DX: Z12.11 Encounter for screening for malignant neoplasm of colon (principal); K63.5 Polyp of colon; C43.9 Malignant melanoma of skin, unspecified; F33.1 Major depressive disorder, recurrent, moderate; I25.2 Old myocardial infarction; F17.210 Nicotine dependence, cigarettes, uncomplicated; Z79.899 Other long term (current) drug therapy; Z88.8 Allergy status to other drugs, medicaments and biological substances; Z88.2 Allergy status to sulfonamides
CPT/HCPCS: 45380; 88305; J2250; J2704; J3010; J7120

== ENCOUNTER 2025-04-21 07:51 | Day surgery (SDC) | payer MEDICARE, MEDICAID ==
[2025-04-21] MEDS ORDERED: Propofol 200 MG/20 ML SDV ONE (09:15)
[2025-04-21] MEDS ORDERED: Midazolam 1 MG/ML 2 ML SDV ONE (09:15)
[2025-04-21] MEDS ORDERED: fentaNYL 50 MCG/ML SDV ONE (09:16)
[2025-04-21] MEDS: Lactated Ringers 1,000 ML IV SCH (09:38)
[2025-04-21 12:08] VITALS: BP 155/70; PULSE 52
== END 2025-04-21 12:45 | disposition home or self-care (01) ==
LOC: JP.SDS 07:51
PROVIDERS: ATTEND Surgery
DX: Z12.11 Encounter for screening for malignant neoplasm of colon (principal); Z86.0100 Personal history of colon polyps, unspecified
CPT/HCPCS: 00812; G0121; J2250; J2704; J3010; J7120